=== PATIENT | female | born 1950 | race Caucasian/White ===

== ENCOUNTER 2017-08-12 08:49 | Inpatient (IN) | payer OTHER ==
[2017-08-12] VITALS (10 sets, daily range): BP systolic 117–134; BP diastolic 61–84; PULSE 63–84; RESP 14–18; TEMP 97.7–97.8; O2SAT 96–99
[~2017-08-12] VITALS: Ht 162.6 cm; Wt 58.7 kg
[~2017-08-12 08:49] MED LIST: HYDR-3533 PO; METHO500 PO; SYNT75TA OR
[2017-08-12] MEDS ORDERED: MORPHINE SULFATE 4 MG/ML INJ IV PUSH ONE (09:15)
[2017-08-12] MEDS ORDERED: PANTOPRAZOLE SODIUM 40 MG VIAL IV PUSH ONE (09:15)
[2017-08-12] MEDS ORDERED: ASPIRIN 325 MG TAB PO ONE (09:15)
[2017-08-12] MEDS ORDERED: LEVO.075 PO (09:21)
--- NOTE | 2017-08-12 09:37 | RADRPT ---
EXAM DATE: 08/12/2017 9:27 AM EDT AGE/SEX: 66 years / Female INDICATIONS: Chest & left shoulder pain that woke the patient up this morning. CLINICAL DATA: This is the patient's initial encounter. Patient reports that signs and symptoms have been present for 1 day and indicates a pain score of 8/10. MEDICAL/SURGICAL HISTORY: . Thyroid disease. Smoker. section. COMPARISON: [facility], CHEST SINGLE AP, 06/01/2015. . FINDINGS: A single AP view of the chest demonstrates the lungs to be symmetrically aerated without evidence of mass, infiltrate or effusion. There is hyperaeration of both lung [place]. The cardiomediastinal cont ours are unremarkable. Osseous structures are intact. CONCLUSION: No acute intrathoracic disease. Stable examination. Electronically signed by: Shiv Umana MD 08/12/2017 9:35 AM EDT
[2017-08-12] MEDS ORDERED: MORPHINE SULFATE 2 MG/ML SYRINGE IV PUSH ONE (09:45)
[2017-08-12 09:52] LABS: AUTOMATED NEUTROPHIL # 5.6 TH/MM3 (1.8-7.7); BASOPHIL # 0.1 TH/MM3 (0-0.2); BASOPHIL % 0.8 % (0.0-2.0); EOSINOPHIL # 0.1 TH/MM3 (0-0.4); EOSINOPHIL % 1.6 % (0.0-4.0); HEMOGLOBIN 13.1 GM/DL (11.6-15.3); LYMPH % 25.9 % (9.0-44.0); LYMPHOCYTE # 2.1 TH/MM3 (1.0-4.8); MEAN CELL VOLUME 93.9 FL (80.0-100.0); MEAN CORPUSCULAR HEMOGLOBIN 32.3 PG (27.0-34.0); MEAN CORPUSCULAR HGB CONC 34.5 % (32.0-36.0); MEAN PLATELET VOLUME 7.3 FL (7.0-11.0); MONO % 5.4 % (0.0-8.0); MONOCYTE # 0.4 TH/MM3 (0-0.9); NEUT % 66.3 % (16.0-70.0); PLATELET COUNT 243 TH/MM3 (150-450); RED BLOOD COUNT 4.05 MIL/MM3 (4.00-5.30); RED CELL DISTRIBUTION WIDTH 11.6 % (11.6-17.2); WHITE BLOOD COUNT 8.3 TH/MM3 (4.0-11.0)
[2017-08-12 09:58] LABS: CHLORIDE 107 MEQ/L (98-107); SODIUM (NA) 141 MEQ/L (136-145)
[2017-08-12 10:02] LABS: ALBUMIN 3.9 GM/DL (3.4-5.0); BICARBONATE 26.4 MEQ/L (21.0-32.0); BLOOD UREA NITROGEN 12 MG/DL (7-18); CALCIUM 8.6 MG/DL (8.5-10.1); GLUCOSE,RANDOM 117 MG/DL (74-106)
[2017-08-12 10:05] LABS: ALT (GPT) 17 U/L (10-53); AST (GOT) 14 U/L (15-37); CREATININE 0.72 MG/DL (0.50-1.00); GLOMERULAR FILTRATION RATE 82 ML/MIN (>89)
[2017-08-12 10:07] LABS: TOTAL BILIRUBIN ADULT 0.2 MG/DL (0.2-1.0); TOTAL PROTEIN 7.1 GM/DL (6.4-8.2)
[2017-08-12 10:08] LABS: ALKALINE PHOSPHATASE 66 U/L (45-117)
[2017-08-12 10:10] LABS: TROPONIN I LESS THAN 0.02 NG/ML (0.02-0.05)
--- NOTE | 2017-08-12 10:44 | PD ---
HPI Chief Complaint: Chest Pain Time Seen by Provider: 09:03 Travel History International Travel<30 days: No Contact w/Intl Traveler<30days: No Traveled to known affect area: No History of Present Illness HPI 66-year-old female presented ER for evaluation of chest pain. Chest pain started this morning, sudden onset, dull, pressure-like, mid chest and radiates to the left side, rated 7 out of 10, pain is constant, nothing makes it better or worse, patient did not have this type of pain in the past which prompted her to come to the ER. Pain started around 4:00 this morning and woke the patient up from sleep, patient has no history of hypertension or diabetes, she has no primary care physician. No cough or chills or night sweats, no nausea or vomiting or diarrhea. PFSH Past Medical History Diminished Hearing: No Thyroid Disease: Yes Influenza Vaccination: No ?: Not Past Surgical History Abdominal Surgery: Yes (lap for endometriosis) Section: Yes Social History Alcohol Use: Yes (occ) Tobacco Use: Yes (1/2 ppd) Substance Use: No Allergies-Medications (Allergen,Severity, Reaction): Coded Allergies: penicillin G (Unverified Allergy, Severe, rash, 08/12/17) Uncoded Allergies: codiene (Allergy, Mild, Nausea and vomiting, 08/12/17) Reported Meds & Prescriptions Reported Meds & Active Scripts Active Reported Synthroid (Levothyroxine Sodium) 75 Mcg Tab 75 Mcg PO DAILY Review of Systems Except as stated in HPI: all other systems reviewed are Neg Physical Exam Narrative GENERAL: Alert oriented 3 no acute distress. SKIN: Focused skin assessment warm/dry. HEAD: Atraumatic. Normocephalic. EYES: Pupils equal and round. No scleral icterus. No injection or drainage. ENT: No nasal bleeding or discharge. Mucous membranes pink and moist. NECK: Trachea midline. No JVD. CARDIOVASCULAR: Regular rate and rhythm. No murmur appreciated. RESPIRATORY: No accessory muscle use. Clear to auscultation. Breath sounds equal bilaterally. GASTROINTESTINAL: Abdomen soft, non-tender, nondistended. Hepatic and splenic margins not palpable. MUSCULOSKELETAL: No obvious deformities. No clubbing. No cyanosis. No edema. NEUROLOGICAL: Awake and alert. No obvious cranial nerve deficits. Motor grossly within normal limits. Normal speech. PSYCHIATRIC: Appropriate mood and affect; insight and judgment normal. Data Data Last Documented VS Vital Signs Date Time Temp Pulse Resp B/P (MAP) Pulse Ox O2 Delivery O2 Flow Rate FiO2 08/12/17 10:20 79 129/82 (98) 98 Room Air 08/12/17 10:00 16 08/12/17 09:13 97.7 Orders Orders Electrocardiogram (08/12/17 09:13) B-Type Natriuretic Peptide (08/12/17 09:13) Ckmb (Isoenzyme) Profile (08/12/17 09:13) Complete Blood Count With Diff (08/12/17 09:13) Comprehensive Metabolic Panel (08/12/17 09:13) D-Dimer (08/12/17 09:13) Troponin I (08/12/17 09:13) Lipase (08/12/17 09:13) Chest, Single Ap (08/12/17 09:13) Aspirin (Aspirin) (08/12/17 09:15) Pantoprazole Inj (Protonix Inj) (08/12/17 09:15) Morphine Inj (Morphine Inj) (08/12/17 09:45) Ketorolac Inj (Toradol Inj) (08/12/17 10:45) Electrocardiogram (08/12/17 10:29) Admit Order (Ed Use Only) (08/12/17 11:13) Labs Laboratory Tests Test 08/12/17 09:15 White Blood Count 8.3 TH/MM3 Red Blood Count 4.05 MIL/MM3 Hemoglobin 13.1 GM/DL Hematocrit 38.0 % Mean Corpuscular Volume 93.9 FL Mean Corpuscular Hemoglobin 32.3 PG Mean Corpuscular Hemoglobin Concent 34.5 % Red Cell Distribution Width 11.6 % Platelet Count 243 TH/MM3 Mean Platelet Volume 7.3 FL Neutrophils (%) (Auto) 66.3 % Lymphocytes (%) (Auto) 25.9 % Monocytes (%) (Auto) 5.4 % Eosinophils (%) (Auto) 1.6 % Basophils (%) (Auto) 0.8 % Neutrophils # (Auto) 5.6 TH/MM3 Lymphocytes # (Auto) 2.1 TH/MM3 Monocytes # (Auto) 0.4 TH/MM3 Eosinophils # (Auto) 0.1 TH/MM3 Basophils # (Auto) 0.1 TH/MM3 CBC Comment DIFF FINAL Differential Comment D-Dimer Quantitative (PE/DVT) 0.28 MG/L FEU Blood Urea Nitrogen 12 MG/DL Creatinine 0.72 MG/DL Random Glucose 117 MG/DL Total Protein 7.1 GM/DL Albumin 3.9 GM/DL Calcium Level 8.6 MG/DL Alkaline Phosphatase 66 U/L Aspartate Amino Transf (AST/SGOT) 14 U/L Alanine Aminotransferase (ALT/SGPT) 17 U/L Total Bilirubin 0.2 MG/DL Sodium Level 141 MEQ/L Potassium Level 3.7 MEQ/L Chloride Level 107 MEQ/L Carbon Dioxide Level 26.4 MEQ/L Anion Gap 8 MEQ/L Estimat Glomerular Filtration Rate 82 ML/MIN Total Creatine Kinase 64 U/L Troponin I LESS THAN 0.02 NG/ML B-Type Natriuretic Peptide 27 PG/ML Lipase 198 U/L MDM Medical Decision Making Medical Screen Exam Complete: Yes Emergency Medical Condition: Yes Differential Diagnosis NSTEMI, unstable angina, coronary vasospasm, PE, PTX, aortic dissection, pericarditis, myocarditis, endocarditis, PNA, esophageal disease, aneurysm, musculoskeletal etiologies, anxiety, cocaine/sympathomimetic abuse Narrative Course 66-year-old female here for evaluation of chest pain. Chest pain is typical in presentation, no history of hypertension or diabetes, vitals are stable but patient is in pain even after morphine and Toradol. First EKG is negative for any segment elevation or depression, troponin spiked up from 0.02 to 0.81, repeat EKG shows T wave inversion on lead III that was not there before. Patient vitals are stable but still in pain. Patient was initially admitted for acute coronary syndrome but will be transferred to the main campus for emergent cath. Laboratory Tests Test 08/12/17 09:15 White Blood Count 8.3 TH/MM3 Red Blood Count 4.05 MIL/MM3 Hemoglobin 13.1 GM/DL Hematocrit 38.0 % Mean Corpuscular Volume 93.9 FL Mean Corpuscular Hemoglobin 32.3 PG Mean Corpuscular Hemoglobin Concent 34.5 % Red Cell Distribution Width 11.6 % Platelet Count 243 TH/MM3 Mean Platelet Volume 7.3 FL Neutrophils (%) (Auto) 66.3 % Lymphocytes (%) (Auto) 25.9 % Monocytes (%) (Auto) 5.4 % Eosinophils (%) (Auto) 1.6 % Basophils (%) (Auto) 0.8 % Neutrophils # (Auto) 5.6 TH/MM3 Lymphocytes # (Auto) 2.1 TH/MM3 Monocytes # (Auto) 0.4 TH/MM3 Eosinophils # (Auto) 0.1 TH/MM3 Basophils # (Auto) 0.1 TH/MM3 CBC Comment DIFF FINAL Differential Comment D-Dimer Quantitative (PE/DVT) 0.28 MG/L FEU Blood Urea Nitrogen 12 MG/DL Creatinine 0.72 MG/DL Random Glucose 117 MG/DL Total Protein 7.1 GM/DL Albumin 3.9 GM/DL Calcium Level 8.6 MG/DL Alkaline Phosphatase 66 U/L Aspartate Amino Transf (AST/SGOT) 14 U/L Alanine Aminotransferase (ALT/SGPT) 17 U/L Total Bilirubin 0.2 MG/DL Sodium Level 141 MEQ/L Potassium Level 3.7 MEQ/L Chloride Level 107 MEQ/L Carbon Dioxide Level 26.4 MEQ/L Anion Gap 8 MEQ/L Estimat Glomerular Filtration Rate 82 ML/MIN Total Creatine Kinase 64 U/L Troponin I LESS THAN 0.02 NG/ML B-Type Natriuretic Peptide 27 PG/ML Lipase 198 U/L Diagnosis Primary Impression: Acute coronary syndrome Admitting Information Admitting Physician Requests: Admit Condition: Stable José Miguel Joshi MD Aug 12, 2017 10:44
[2017-08-12] MEDS ORDERED: KETOROLAC TROMETHAMINE 30 MG/ML (IVP) VIAL IV PUSH ONE (10:45)
[2017-08-12] MEDS ORDERED: SODIUM CHLORIDE 0.9% FLUSH 10 ML FLUSH IV FLUSH PRN (11:15)
[2017-08-12] MEDS ORDERED: ACETAMINOPHEN 500 MG CPLT PO PRN (11:15)
[2017-08-12 13:42] LABS: TROPONIN I 0.81 NG/ML (0.02-0.05)
[2017-08-12] MEDS ORDERED: HEPARIN-D5W 25,000 U/250 ML 250 ML IV PRN (14:30)
[2017-08-12] MEDS ORDERED: HEPARIN SODIUM - IV 10,000 UNITS/10 ML VIAL IV ONE (14:30)
[2017-08-12] MEDS: NITROGLYCERIN 2% OINT 1 GM PACKET TOPICAL SCH ×2 (14:42→21:48)
[2017-08-12] MEDS: METOPROLOL TARTRATE 25 MG TAB PO SCH ×2 (14:42→21:48)
[2017-08-12 14:43] LABS: HEMATOCRIT 37.2 % (35.0-46.0); HEMOGLOBIN 12.8 GM/DL (11.6-15.3); MEAN CELL VOLUME 93.6 FL (80.0-100.0); MEAN CORPUSCULAR HEMOGLOBIN 32.2 PG (27.0-34.0); MEAN CORPUSCULAR HGB CONC 34.4 % (32.0-36.0); MEAN PLATELET VOLUME 6.8 FL (7.0-11.0); PLATELET COUNT 243 TH/MM3 (150-450); RED BLOOD COUNT 3.97 MIL/MM3 (4.00-5.30); RED CELL DISTRIBUTION WIDTH 11.9 % (11.6-17.2); WHITE BLOOD COUNT 10.1 TH/MM3 (4.0-11.0)
[2017-08-12 14:56] LABS: PROTHROMBIN TIME - PATIENT 9.8 SEC (9.8-11.6)
--- NOTE | 2017-08-12 15:26 | HHI.HP ---
[facility] No Primary Care Physician Admission Diagnosis ACUTE CORONARY SYNDROME Diagnoses: (1) Acute coronary syndrome Diagnosis: Principal Chief Complaint: Chest pain Travel History International Travel<30 Days: No Contact w/Intl Traveler <30 Da: No Traveled to Known Affected Are: No History of Present Illness 66-year-old female with known history of hypothyroidism who is very active with salsa dancing on a regular basis who presented to the hospital because of chest pain. Patient states that she was in normal state of health last night did also dancing practice and she came home bed. At approximately 3 AM in the morning she woke up with a 5/10 pain in her left shoulder and arm. She thought it was just from her dancing so she was able to go back to sleep and then when she woke up this morning at 6 AM the pain was significantly worse with a pain 9/ 10 on a pain scale initially started developing nausea, vomiting, cold sweats, diaphoresis. Because of those reasons she did come to the emergency department at approximately 850 this morning. When she arrived to the ER she started developing a pressure heaviness in her chest which she described as very heavy with the worsening arm pain. Patient was given morphine with no significant improvement, she was given Toradol with improvement of her pain. She still having some pain at this time in her left shoulder. Patient did have workup done in the emergency department with normal troponin and an initial EKG that was normal, ER physician recommended the patient be admitted for acute coronary syndrome for further evaluation and management. Review of Systems Cardiovascular: COMPLAINS OF: Chest pain Musculoskeletal: COMPLAINS OF: Joint pain, Muscle aches Except as stated in HPI: all other systems reviewed are Neg Past Family Social History Past Medical History Hypothyroidism Past Surgical History Laparoscopic procedure for endometriosis Reported Medications Reported Meds & Active Scripts Active Reported Synthroid (Levothyroxine Sodium) 75 Mcg Tab 75 Mcg PO DAILY Allergies: Coded Allergies: penicillin G (Unverified Allergy, Severe, rash, 08/12/17) Uncoded Allergies: codiene (Allergy, Mild, Nausea and vomiting, 08/12/17) Family History Reviewed and significant for father having early onset heart disease, he had his first heart attack in his early 50s with coronary bypass surgery. Social History Patient smokes half a pack of cigarettes a day since she was 17 years old. Does drink at least one glass of wine daily. Denies any illicit drug Physical Exam Vital Signs Vital Signs Date Time Temp Pulse Resp B/P (MAP) Pulse Ox O2 Delivery O2 Flow Rate FiO2 08/12/17 14:30 72 14 118/71 (87) 98 Room Air 08/12/17 13:27 65 123/75 (91) 96 Room Air 08/12/17 12:30 63 131/76 (94) 98 Room Air 08/12/17 12:00 14 08/12/17 11:30 72 128/72 (90) 98 Room Air 08/12/17 10:20 79 129/82 (98) 98 Room Air 08/12/17 10:00 16 08/12/17 09:16 98 Room Air 08/12/17 09:13 97.7 71 16 117/61 (79) 98 Physical Exam GENERAL: Well-developed, well-nourished, in no acute distress. alert and orientated HEENT: Head is normocephalic without any lesions or masses noted. Facial features are symmetric. Eyes: Pupils equal round reactive to light. Extraocular muscles are intact. Conjunctivae were clear. Oropharyngeal: Pharynx without any erythema edema. Tongue is midline without deviation. Buccal mucosa is moist without any masses or lesions NECK: Supple without any masses. Trachea midline no deviation. No JVD, no bruits are appreciated CARDIAC: Regular rhythm, regular rate. S1/S2 are heard. No murmurs gallops or rubs. LUNGS: Clear to auscultation bilaterally. No wheeze, rhonchi or rales. No use of accessory muscles on inspiration or expiration. ABDOMEN: Soft, nontender. Nondistended. Bowel sounds heard in all 4 quadrants. No organomegaly or masses. Negative rebound, negative guarding EXTREMITIES: No edema, pulses are equal bilaterally. No cyanosis or clubbing NEUROLOGY: Mood and affect appear appropriate. Cranial nerves II through XII grossly intact. Muscle strength 5/5 in upper and lower extremities bilaterally. Deep tendon reflexes are 2+ in upper and lower extremities bilaterally. Laboratory Laboratory Tests Test 08/12/17 09:15 08/12/17 12:30 08/12/17 14:35 White Blood Count 8.3 10.1 Red Blood Count 4.05 3.97 Hemoglobin 13.1 12.8 Hematocrit 38.0 37.2 Mean Corpuscular Volume 93.9 93.6 Mean Corpuscular Hemoglobin 32.3 32.2 Mean Corpuscular Hemoglobin Concent 34.5 34.4 Red Cell Distribution Width 11.6 11.9 Platelet Count 243 243 Mean Platelet Volume 7.3 6.8 Neutrophils (%) (Auto) 66.3 Lymphocytes (%) (Auto) 25.9 Monocytes (%) (Auto) 5.4 Eosinophils (%) (Auto) 1.6 Basophils (%) (Auto) 0.8 Neutrophils # (Auto) 5.6 Lymphocytes # (Auto) 2.1 Monocytes # (Auto) 0.4 Eosinophils # (Auto) 0.1 Basophils # (Auto) 0.1 CBC Comment DIFF FINAL Differential Comment D-Dimer Quantitative (PE/DVT) 0.28 Blood Urea Nitrogen 12 Creatinine 0.72 Random Glucose 117 Total Protein 7.1 Albumin 3.9 Calcium Level 8.6 Alkaline Phosphatase 66 Aspartate Amino Transf (AST/SGOT) 14 Alanine Aminotransferase (ALT/SGPT) 17 Total Bilirubin 0.2 Sodium Level 141 Potassium Level 3.7 Chloride Level 107 Carbon Dioxide Level 26.4 Anion Gap 8 Estimat Glomerular Filtration Rate 82 Total Creatine Kinase 64 157 Troponin I LESS THAN 0.02 0.81 B-Type Natriuretic Peptide 27 Lipase 198 Creatine Kinase MB 17.5 Prothrombin Time 9.8 Prothromb Time International Ratio 1.0 Activated Partial Thromboplast Time 24.4 Result Diagram: 08/12/17 1435 08/12/17 0915 Imaging Last Impressions Chest X-Ray 08/12/17 0913 Signed Impressions: CONCLUSION: No acute intrathoracic disease. Stable examination. Caprini VTE Risk Assessment Caprini VTE Risk Assessment: Mod/High Risk (score >= 2) Caprini Risk Assessment Model Point Value = 1 Point Value = 2 Point Value = 3 Point Value = 5 Age 41-60 Minor surgery BMI > 25 kg/m2 Swollen legs Varicose veins or History of unexplained or recurrent spontaneous Oral contraceptives or hormone replacement Sepsis (< 1 month) Serious lung disease, including pneumonia (< 1 month) Abnormal pulmonary function Acute myocardial infarction Congestive heart failure (< 1 month) History of inflammatory bowel disease Medical patient at bed rest Age 61-74 Arthroscopic surgery Major open surgery (> 45 min) Laparoscopic surgery (> 45 min) Malignancy Confined to bed (> 72 hours) Immobilizing plaster cast Central venous access Age >= 75 History of VTE Family history of VTE Factor V Leiden Prothrombin [id number] Lupus anticoagulant Anticardiolipin antibodies Elevated serum homocysteine Heparin-induced thrombocytopenia Other congenital or acquired thrombophilia Stroke (< 1 month) Elective arthroplasty Hip, pelvis, or leg fracture Acute spinal cord injury (< 1 month) Prophylaxis Regimen Total Risk Factor Score Risk Level Prophylaxis Regimen 0-1 Low Early ambulation 2 Moderate Order ONE of the following: *Sequential Compression Device (SCD) *Heparin 5000 units SQ BID 3-4 Higher Order ONE of the following medications: *Heparin 5000 units SQ TID *Enoxaparin/Lovenox 40 mg SQ daily (WT < 150 kg, CrCl > 30 mL/min) *Enoxaparin/Lovenox 30 mg SQ daily (WT < 150 kg, CrCl > 10-29 mL/min) *Enoxaparin/Lovenox 30 mg SQ BID (WT < 150 kg, CrCl > 30 mL/min) AND/OR *Sequential Compression Device (SCD) 5 or more Highest Order ONE of the following medications: *Heparin 5000 units SQ TID (Preferred with Epidurals) *Enoxaparin/Lovenox 40 mg SQ daily (WT < 150 kg, CrCl > 30 mL/min) *Enoxaparin/Lovenox 30 mg SQ daily (WT < 150 kg, CrCl > 10-29 mL/min) *Enoxaparin/Lovenox 30 mg SQ BID (WT < 150 kg, CrCl > 30 mL/min) AND *Sequential Compression Device (SCD) Assessment and Plan Assessment and Plan Acute coronary syndrome, -Patient still symptomatic with left arm shoulder pain -Patient does have increased risk to include age, postmenopausal without hormones, family history of heart disease, tobacco use -Patient with significant troponin change from 0.02--> 0.81 within 3 hours -Serial EKGs were reviewed and mild ST elevations noted in inferior leads -On-call administrative support associate was notified and spoke with him directly. Recommended emergent transfer to doc unit to undergo cardiac catheterization today. Recommended full anticoagulation. -Patient was given aspirin, will add beta-aleks, Nitropaste, statin -Check lipid panel Hypothyroidism -Check TSH Continue home medications DVT prevention -Heparin Physician Certification 2 Midnight Certification Type: Admission for Inpatient Services Order for Inpatient Services The services are ordered in accordance with Medicare regulations or non- Medicare payer requirements, as applicable. In the case of services not specified as inpatient-only, they are appropriately provided as inpatient services in accordance with the 2-midnight benchmark. Estimated LOS (days): 3 days is the estimated time the patient will need to remain in the hospital, assuming treatment plan goals are met and no additional complications. Post-Hospital Plan: Not yet determined Aly Frederick Aug 12, 2017 15:26
--- NOTE | 2017-08-12 16:45 | MB ---
cc: Laura Mcgraw MD DATE: 08/12/2017 HISTORY OF PRESENT ILLNESS: This 56-year-old female with history of hypothyroidism woke up last night with severe pain in her left shoulder and left arm. She had been Salsa dancing and she thought this was related to her activities. The patient subsequently developed nausea, vomiting, cold sweats, and diaphoresis. She subsequently has heavy chest pressure, and worsening arm pain. She was given Toradol and morphine. Her symptoms are now improved. She is being ruled in for non-ST elevation myocardial infarction with a second troponin of 0.81. PAST MEDICAL HISTORY: Positive for hypothyroidism. No history of hypertension, dyslipidemia, diabetes mellitus, coronary artery disease, or CVA PAST SURGICAL HISTORY: History of , laparoscopic surgery for endometriosis. MEDICATIONS: Synthroid. ALLERGIES: PENICILLIN AND CODEINE. SOCIAL HISTORY: The patient smokes 1/2 pack a day. She drinks wine daily. FAMILY HISTORY: Positive for heart disease in both parents. REVIEW OF SYSTEMS: Otherwise negative. PHYSICAL EXAMINATION: VITAL SIGNS: Blood pressure 118/71, pulse 72 and regular. HEENT: Negative. NECK: 2+ carotid pulse. No bruits. LUNGS: Clear. HEART: Regular with no murmur or gallop. ABDOMEN: Soft. No bruits. EXTREMITIES: Without edema. 2+ distal pulses. NEUROLOGIC: Grossly nonfocal. DIAGNOSTIC STUDIES: EKG was reviewed and showed sinus bradycardia at 57 beats per minute and nonspecific T-wave changes. LABORATORY DATA: Hemoglobin 12.8, potassium 3.7, creatinine 0.7. Troponin 0.02 and 0.81. CK 64 and 157. BNP 27. DIAGNOSES: 1. Non-ST elevation myocardial infarction. 2. Hypothyroidism. 3. Smoking. DISPOSITION: Ms. Delatorre will undergo cardiac catheterization and coronary intervention if necessary. The patient understands the risks and benefits, and wishes to proceed. She was strongly encouraged to quit smoking. Laura Mcgraw MD OQ/ARIK , 04:22 PM , 04:43 PM [facility]
[2017-08-12] MEDS ORDERED: HEPARIN-NS/PF INJ 1,000 ML ONE (17:00)
[2017-08-12] MEDS ORDERED: IOHEXOL 350 MG/ML 100 ML BTL (for Cath Lab) OTHER ONE (17:17)
--- NOTE | 2017-08-12 17:20 | EKG ---
Date Performed: 08/12/2017 Time Performed: 10:29:19 PTAGE: 66 years EKG: Sinus rhythm NONSPECIFIC ST & T-WAVE ABNORMALITY BORDERLINE ECG PREVIOUS TRACING : 05/16/2011 16.28 Since the previous tracing, no significant change noted DOCTOR: Sung Haskins Interpretating Date/Time 08/12/2017 17:19:27
--- NOTE | 2017-08-12 17:20 | EKG ---
Date Performed: 08/12/2017 Time Performed: 08:54:29 PTAGE: 66 years EKG: SINUS BRADYCARDIA NONSPECIFIC ST & T-WAVE ABNORMALITY BORDERLINE ECG INTERPRETATION BASED O N A DEFAULT AGE OF 42 YEARS PREVIOUS TRACING 05/16/11 Since the previous tracing, no significant change noted DOCTOR: Sung Haskins Interpretating Date/Time 08/12/2017 17:19:18
[2017-08-12] MEDS ORDERED: MIDAZOLAM HCL 5 MG/5 ML VIAL ONE (17:41)
[2017-08-12] MEDS ORDERED: HEPARIN-NS/PF INJ 500 ML ONE (18:31)
[2017-08-12] MEDS ORDERED: CLOPIDOGREL 300 MG TAB ONE (19:00)
[2017-08-12] MEDS ORDERED: SODIUM CHLOR 0.9% 1000 ML INJ 1,000 ML IV SCH (19:10)
--- NOTE | 2017-08-12 19:12 | CATHPROC ---
[facility] HIS Report Study Information Study Number Admission Scheduled Start Study Start [id number] Aug 12 2017 3:07PM 08/12/2017 Aug 12 2017 5:23PM [place] [facility] Cardiac Catheterization Admit Source Facility Department Emergency department [facility] - Mediation Commissioner Physician and Clinical Staff Initial Laura Romna Case Management Associate Evonne Valencia,BREA Recorder Tsering Griffin,RT(R) (BS) Scrub Caroline PratherRT(R) Procedures Performed Procedure Location (Site) Vessel Name Angiogram LV LV Ventricle Coronary Angiograms LCA Left Coronary Coronary Angiograms RCA Right Coronary Drug Eluting Inflatio RCA Dist Right Coronary Drug Eluting Inflatio RCA Mid Right Coronary L Heart Cath PTCA RCA Dist Right Coronary PTCA ADD ON'S Wire insertion Fem Art (right) Femoral Art Equipment Time Rapid Transit Operator Description Size Mfg Part Number Used/Scraped TRANSDUCER, TRUWAVE [id number] 18:00 [employer] THRASHER * Used W/STOCKCOCK *[id number] *[id number] *[id number] *[id number] *[id number] 18:49 DAIG/ST. JARVIS MEDICAL ANGIOSEAL, FR6 VIP FR 6 Used *[id number] 18:00 5by BLANKET,WARM AIR CCL * Used *[id number] 18:00 5by PACK, CCL CUSTOM * Used *[id number] 18:00 [employer] PACER PEN, SKIN DUAL W/ RULER * Used *[id number] 18:30 MEDTRONIC BALLOON, 2.0 X 12MM EUPHORA 12MM Used *[id number] 17:53 MEDTRONIC JL 4.0 DXTERITY CATHETER FR 5 Used *[id number] 18:40 MEDTRONIC STENT, 2.25 38MM ANGELA 2.25 38MM [id number] 18:42 MEDTRONIC STENT, 2.5 12MM ANGELA 2.5 12MM Used *[id number] 18:17 Celframe 30 JESUS ALBERTO INDEFLATOR Used *[id number] 18:17 [employer]elf[employer] SHEATH, FR6.5 PRELUDE 11CM FR 6.5 [id number] Used *[id number] 18:00 [employer]elf[employer] WIRE, 3MMJ .035 180CM 180CM Used *[id number] PROBE COVER, STERILE [id number] 18:00 [employer] MEDICAL * Used ULTRASOUND W/ GEL *[id number] 18:00 NAMIC MANIFOLD, 4 PORT * Used *[id number] 18:00 NAMIC TUBING, HIGH PRESSURE 48" 48" Used *[id number] 18:00 NYCOMED OMNIPAQUE, 350 MG, 150ML 150ML [id number] Used 18:21 NYCOMED OMNIPAQUE, 350 MG, 150ML 150ML [id number] Used 18:21 NYCOMED OMNIPAQUE, 350 MG, 150ML 150ML [id number] Used [id number] 18:00 TERUMO MEDICAL SHEATH, FR5 TERUMO (10CM) FR 5 Used *[id number] WIRE, RUNTHROUGH NS FLOPPY [id number] 18:15 TERUMO MEDICAL 180CM Used .014 180CM *[id number] Equipment Model, Serial, Lot Number and Expiration Data Description Model Number Serial Number Lot Number Expiration Date ANGIOSEAL, FR6 VIP [id number] 03-26-2018 JL 4.0 DXTERITY CATHETER [id number] 12-11-2019 STENT, 2.25 38MM ANGELA [id number] 10-29-2018 STENT, 2.5 12MM ANGELA [id number] 04-09-2019 History: Current Medications Medication Dosage/Unit Route Frequency Last Date/Time Taken ASA Beta Lalita Statins (any) NTG Patch History: Allergies Allergy Reaction penicillin G rash codiene Nausea and vomiting History: Risk Factors Family History of Hypertension Dyslipidemia Previous NM Previous Heart Failure Premature CAD No No Yes No No Prior Valve Prior PCI Prior CABG Surgery No No No Cerebrovascular Peripheral Artery Chronic Lung On Dialysis Diabetes Disease Disease Disease No No No No No History: Symptoms/Diagnosis Selection Items Chest pain History: Stress Tests Stress or Imaging Studies Performed No History: Other Current Smoker Method Packs a Day Years Used Pack Years Yes Cigarettes 1 49 49 Labs Hgb (g/dl) Hct (%) WBC (l/cumm) Platelets (thousands) 11.60-17.00 35.00-51.00 4.00-11.00 150.00-450.00 12.8 37.2 10.1 243 Glucose (mg/dl) BUN (mg/dl) Creatinine (mg/dl) BUN:Creatinine (1:x) 74.00-106.00 7.00-18.00 0.50-1.30 10.00-20.00 117 12 0.7 17.1 Na (meq/l) K (meq/l) 136.00-145.00 3.50-5.10 141 3.7 INR (PTT:PT) 0.90-1.10 1 Troponin I (ng/ml) CPK (u/l) CPK-MB (ng/ML) 0.02-0.05 26.00-308.00 0.50-3.60 0.81 157 17.5 Medication Medication Total Dose (Bolus/Oral) Medication Total Dosage/Unit 1% XYLOCAINE 20 mL FENTANYL 100 mcg HEPARIN 3500 units NTG (IC) 100 mcg OXYGEN 2 l/min PLAVIX 600 mg VERSED 4 mg Medications (Bolus/Oral) Medication Time Given Dosage/Unit Administered By Reason OXYGEN 08/12/2017 5:36:35 PM 2 l/min Evonne Valencia 2 l/min OXYGEN given in lab by Evonne Valencia RN via Nasal. VERSED 08/12/2017 5:45:52 PM 1 mg Evonne Valencia 1 mg VERSED given in lab by Evonne Valencia RN in Left Antecubital via Peripheral IV. FENTANYL 08/12/2017 5:46:03 PM 25 mcg Evonne Valencia 25 mcg FENTANYL given in lab by Evonne Valencia RN in Left Antecubital via Peripheral IV. 1% XYLOCAINE 08/12/2017 5:49:06 PM 20 mL Caroline Prather 20 mL 1% XYLOCAINE given in lab by Caroline Prather, RT(R) in Right Groin via Subcutaneous. VERSED 08/12/2017 6:17:46 PM 1 mg Evonne Valencia 1 mg VERSED given in lab by Evonne Valencia RN in Left Antecubital via Peripheral IV. FENTANYL 08/12/2017 6:18:48 PM 25 mcg Evonne Valencia 25 mcg FENTANYL given in lab by Evonne Valencia RN in Left Antecubital via Peripheral IV. HEPARIN 08/12/2017 6:18:57 PM 3500 units Evonne Valencia 3500 units HEPARIN given in lab by Evonne Valencia RN in Left Antecubital via Peripheral IV. VERSED 08/12/2017 6:34:31 PM 1 mg Evonne Valencia 1 mg VERSED given in lab by Evonne Valencia RN in Left Antecubital via Peripheral IV. VERSED 08/12/2017 6:43:17 PM 1 mg Evonne Valencia 1 mg VERSED given in lab by Evonne Valencia RN in Left Antecubital via Peripheral IV. FENTANYL 08/12/2017 6:43:23 PM 25 mcg Evonne Valencia 25 mcg FENTANYL given in lab by Evonne Valencia RN in Left Antecubital via Peripheral IV. NTG (IC) 08/12/2017 6:45:25 PM 100 mcg Caroline Prather 100 mcg NTG (IC) given in lab by Caroline Prather RT(R) via Intra-coronary. FENTANYL 08/12/2017 6:52:24 PM 25 mcg Evonne Valencia 25 mcg FENTANYL given in lab by Evonne Valencia RN in Left Antecubital via Peripheral IV. PLAVIX 08/12/2017 7:00:32 PM 600 mg Evonne Valencia 600 mg PLAVIX given in lab by Evonne Valencia RN via Oral. Medication (Drip) Medication Time Given Dosage/Unit Concentration/Unit Diluent (ml) Solution HEPARIN DRIP STOPPED 08/12/2017 5:20:31 PM 0 units/hr 0 0 units/hr HEPARIN DRIP STOPPED given in lab by Evonne Valencia RN. Pump/Drip Flow = 0 ml/hr using [ Solution Name]. Initial Case Assessment Cardiovascular HR Rhythm NIBP Chest Pain 73 reg 124/72 2 Edema Present Skin color Skin None Normal Warm Dry Circulatory - Right Pulses Dorsalis Pedis Femoral 2 2 Scale (0,1,2,3,4,d) Circulatory - Left Pulses Dorsalis Pedis Femoral 2 2 Scale (0,1,2,3,4,d) Circulatory - Lower Extremities Color Lower Right Color Lower Left Normal Normal Neurological State Oriented to time-place- Alert Moves all extremities person Respiration - General Respiration Rate SpO2 (%) (B/min) 8 98 Chronological Log Time Study Chronological Log 17:14:13 Patient arrived via Bed. 17:14:25 Patient Name, D.O.B, / Armband Verified By R.N. 17:14:29 Consent signed by the physician and the patient and verified by the Mediation Commissioner staff. 0 units/hr HEPARIN DRIP STOPPED given in lab by Evonne Valencia, BREA. Pump/Drip Flow = 0 ml/hr u sing [Solution 17:20:31 Name]. 17:23:33 Pre-op and post- op instructions given; patient acknowledges understanding of instructions. 17:23:33 Verbal Stimulation=2 Physical Stimulation=2 Airway=2 Respiration=2 TOTAL=8. (0=absent, 1=li mited, 2=present) 17:23:35 Presedation assessment performed by Mediation Commissioner RN. 17:23:42 Patient has been NPO for More than 6Hrs. 17:23:44 Skin Breakdown none per pt 17:23:46 Patient Warmer Placed on the Table. 17:23:47 Tariq Prominences Protected 17:23:53 History and physical on the chart or being dictated. Assessment: Initial Case, HR=73 BPM, Rhythm=reg, STRF=545/72 mmhg, Chest Pain=2, Edema=None, Co dina=Normal, Skin = Warm, Dry Right Pulses: Ajith Ped=2, Femoral=2 Left Pulses: Ajith Ped=2, Femoral=2 17:23:55 Lower Right Extremities: Color=Normal Lower Left Extremities: Color=Normal Neurological: State=Alert, Ox3, PLUNKETT Respiration: Resp=8 B/min, SpO2=98 % Vitals capture started with the following parameters, Patient=Adult, Interval=5 min, Initial Pr vfvpfx=612 mmHg, 17:24:11 Deflation Rate=5 mmHg, Cuff placed on Left Arm 17:24:47 ZL=115 bpm, JVHJ=095/72 mmhg, SpO2=99.0 %, Resp=0 B/min, Pain=2, Rad=10, Amaro=2 17:29:42 HR=71 bpm, YYLV=998/75 mmhg, Resp=12 B/min, Pain=2, Rad=10, Amaro=2 17:30:16 Vitals capture stopped. 17:32:34 BL starting new IV. 17:35:13 A # 20 IV was inserted in the Antecubital (left). Grade = 0 17:36:35 2 l/min OXYGEN given in lab by Evonne Valencia, RN via Nasal. 17:41:28 Bilateral groins prepped with 2% chlorhexidine, and draped after a 3 minute waiting time. 17:45:18 Pressure channel 1 zeroed. 17:45:49 paged 17:45:52 1 mg VERSED given in lab by Evonne Valencia RN in Left Antecubital via Peripheral IV. 17:46:03 25 mcg FENTANYL given in lab by Evonne Valencia RN in Left Antecubital via Peripheral IV. 17:46:51 Reference ECG taken 17:49:06 20 mL 1% XYLOCAINE given in lab by Caroline Prather, RT(R) in Right Groin via Subcutaneous. 17:55:57 MD arrived. Time Out. Correct patient, correct procedure, correct physician, labs, allergies, and equipment verified with pipelines laborer 17:58:17 team present. Fire risk assesment completed (see hard stop sheet for coding). Time Out Conc urred by MD and individual staff in procedure. 17:58:50 Case Start 17:59:33 Access site was Right Femoral Artery using ultrasound 17:59:59 A SHEATH, FR5 TERUMO (10CM) FR 5 was advanced into the Fem Art (right) using the Percutaneo us technique. A PIGTAIL ANG. INFINITI CATHETER FR 5 was advanced over a wire. OMNIPAQUE, 350 MG, 150ML 150ML was used 18:00:24 for injections. Recorded Pressure: LV, HR=75, Condition=Condition 1 18:02:06 (Left Ventricle) LV 135/12/19 18:02:55 The LV was injected at 10 cc/sec for a total of 30. OMNIPAQUE, 350 MG, 150ML 150ML used. 18:03:47 Activated Clotting Time Drawn Recorded Pressure: LV, Ao, HR=78, Condition=Condition 1 18:03:52 (Left Ventricle) LV 130/9/20, (Aorta) Ao 134/68/97 18:04:20 Catheter was removed A JL 4.0 DXTERITY CATHETER FR 5 was advanced over a wire. OMNIPAQUE, 350 MG, 150ML 150ML was us ed for 18:04:21 injections. 18:05:30 The LCA was injected and visualized at various angles. OMNIPAQUE, 350 MG, 150ML 150ML used . 18:06:51 Catheter was removed A AR MOD INFINITI CATHETER FR 5 was advanced over a wire. OMNIPAQUE, 350 MG, 150ML 150ML was us ed for 18:06:54 injections. 18:07:16 ACT (Normal Range 90-180) = 138 18:08:26 The RCA was injected and visualized at various angles. OMNIPAQUE, 350 MG, 150ML 150ML used . 18:09:25 Catheter was removed 18:16:25 OMNIPAQUE, 350 MG, 150ML 150ML and 30 JESUS ALBERTO INDEFLATOR added. A SHEATH, FR6.5 PRELUDE 11CM FR 6.5 was exchanged in the Fem Art (right). This was necessary in order to 18:17:10 accomodate a larger catheter. A AR 1 GUIDE CATHETER FR 6 was advanced over a wire. OMNIPAQUE, 350 MG, 150ML 150ML was used for 18:17:26 injections. 18:17:46 1 mg VERSED given in lab by Evonne Valencia RN in Left Antecubital via Peripheral IV. 18:18:48 25 mcg FENTANYL given in lab by Evonne Valencia RN in Left Antecubital via Peripheral IV. 18:18:57 3500 units HEPARIN given in lab by Evonne Valencia RN in Left Antecubital via Peripheral I V. 18:21:52 Catheter was removed A [address] [place] [address] GUIDE CATHETER FR 6 was advanced over a wire. OMNIPAQUE, 350 MG, 150ML 150ML was used for 18:22:11 injections. 18:24:50 Activated Clotting Time Drawn 18:25:36 A WIRE, RUNTHROUGH NS FLOPPY .014 180CM 180CM was inserted via Fem Art (right). A BALLOON, 2.0 X 12MM EUPHORA 12MM was inserted over WIRE, RUNTHROUGH NS FLOPPY .014 180CM 180C M via 18:29:00 the Fem Art (right). 18:29:12 ACT (Normal Range 90-180) = 325 A BALLOON, 2.0 X 12MM EUPHORA 12MM over a WIRE, RUNTHROUGH NS FLOPPY .014 180CM 180CM in the RC A Dist 18:32:38 was inflated using a 30 JESUS ALBERTO INDEFLATOR at 14 jesus alberto for 10 sec. A BALLOON, 2.0 X 12MM EUPHORA 12MM over a WIRE, RUNTHROUGH NS FLOPPY .014 180CM 180CM in the RC A Dist 18:32:58 was inflated using a 30 JESUS ALBERTO INDEFLATOR at 14 jesus alberto for 10 sec. A BALLOON, 2.0 X 12MM EUPHORA 12MM over a WIRE, RUNTHROUGH NS FLOPPY .014 180CM 180CM in the RC A Dist 18:33:12 was inflated using a 30 JESUS ALBERTO INDEFLATOR at 14 jesus alberto for 8 sec. A BALLOON, 2.0 X 12MM EUPHORA 12MM over a WIRE, RUNTHROUGH NS FLOPPY .014 180CM 180CM in the RC A Dist 18:33:26 was inflated using a 30 JESUS ALBERTO INDEFLATOR at 14 jesus alberto for 8 sec. A BALLOON, 2.0 X 12MM EUPHORA 12MM over a WIRE, RUNTHROUGH NS FLOPPY .014 180CM 180CM in the RC A Dist 18:33:39 was inflated using a 30 JESUS ALBERTO INDEFLATOR at 14 jesus alberto for 8 sec. A BALLOON, 2.0 X 12MM EUPHORA 12MM over a WIRE, RUNTHROUGH NS FLOPPY .014 180CM 180CM in the RC A Dist 18:33:43 was inflated using a 30 JESUS ALBERTO INDEFLATOR at 14 jesus alberto for 7 sec. A BALLOON, 2.0 X 12MM EUPHORA 12MM over a WIRE, RUNTHROUGH NS FLOPPY .014 180CM 180CM in the RC A Dist 18:34:30 was inflated using a 30 JESUS ALBERTO INDEFLATOR at 14 jesus alberto for 8 sec. 18:34:31 1 mg VERSED given in lab by Evonne Valencia RN in Left Antecubital via Peripheral IV. 18:34:48 Balloon Removed A STENT, 2.25 38MM ANGELA 2.25 38MM was advanced through a 3D SH GUIDE CATHETER FR 6 over a WIR E, 18:39:12 RUNTHROUGH NS FLOPPY .014 180CM 180CM. A STENT, 2.25 38MM ANGELA 2.25 38MM was deployed using a 30 JESUS ALBERTO INDEFLATOR at 12 atmospheres for 27 seconds 18:40:37 in the RCA Dist. 18:41:36 Delivery device removed A STENT, 2.5 12MM ANGELA 2.5 12MM was advanced through a 3DRC SH GUIDE CATHETER FR 6 over a WIRE, 18:43:10 RUNTHROUGH NS FLOPPY .014 180CM 180CM. 18:43:17 1 mg VERSED given in lab by Evonne Valencia RN in Left Antecubital via Peripheral IV. 18:43:23 25 mcg FENTANYL given in lab by Evonne Valencia RN in Left Antecubital via Peripheral IV. A STENT, 2.5 12MM ANGELA 2.5 12MM was deployed using a 30 JESUS ALBERTO INDEFLATOR at 12 atmospheres for 34 seconds in 18:43:52 the RCA Mid. 18:44:44 Delivery device removed 18:45:25 100 mcg NTG (IC) given in lab by Caroline Prather RT(R) via Intra-coronary. 18:46:57 Wire removed 18:49:28 An injection in the Fem Art (right) was made through the SHEATH, FR6.5 PRELUDE 11CM FR 6.5. 18:49:50 ANGIOSEAL, FR6 VIP FR 6 placement in the Fem Art (right) 18:52:24 25 mcg FENTANYL given in lab by Evonne Valencia RN in Left Antecubital via Peripheral IV. 18:52:57 Case End (Physician broke scrub) 18:54:51 Catheter(s) removed without difficulty 18:54:58 No case complications noted. 18:55:13 Bedside Report will be given. 18:55:13 Implantable Device card placed in patient's chart. 18:55:16 A Left Heart Cath was performed. 18:56:08 Sterile dressing applied to site 19:00:32 600 mg PLAVIX given in lab by Evonne Valencia RN via Oral. 19:04:53 [facility] Study - Contrast Media Used In Study Contrast Total Opened (mL) Total Used (mL) Total Wasted (mL) Omnipaque 300 300 0 End Study - Maximum Contrast Load Max Contrast Load (mL) 371.4 End Study - Radiation Exposure Fluoro Time (minutes) 13.0 End Study - Sheaths Sheaths Pulled By Sheath Hold Time (min) Laura Mcgraw End Study - Patient Disposition Complications Transferred To Interventional Outcome No Telemetry Bed successful
[2017-08-12] MEDS ORDERED: MISC INFORMATION XX ONE (19:15)
--- NOTE | 2017-08-12 19:32 | MR ---
cc: Laura Mcgraw MD, Otakar MD DATE: 08/12/2017 INDICATIONS: Non-ST elevation myocardial infarction, class IV angina. PROCEDURE PERFORMED: 1. Retrograde heart catheterization with left ventriculography and selective coronary angiography. 2. Angioplasty and stenting of the mid and distal right coronary artery. 3. Moderate sedation. ACCESS SITE: Right femoral artery. vein, 5 Nigerian pigtail catheter, 5 Nigerian JL4 and AR modified coronary catheters, 3DRC guide with side holes, run through wire, 2.0 x 12 mm balloon for predilatation, 2.25 x 38 mm osmin drug-eluting stent at 12 atmospheres to the distal RCA and 2.5 x 12 mm Osmin drug-eluting stent at 12 atmospheres to the mid RCA. MEDICATIONS: Versed IV, fentanyl IV, heparin IV, nitroglycerin IC, Plavix 600 mg p.o. CONTRAST: Omnipaque 300 mL COMPLICATIONS: None. ESTIMATED BLOOD LOSS: Less than 10 mL METHOD OF HEMOSTASIS: Angio-Seal closure: RESULTS HEMODYNAMICS: Heart rate 70 beats per minute, left ventricular end-diastolic pressure 9 mmHg, left ventricle 136/9, aorta 130/68/97. LEFT VENTRICULOGRAPHY: Ejection fraction 40%, wall motion inferobasal hypokinesis, no mitral regurgitation. CORONARY ANGIOGRAPHY: Left main coronary artery patent. Left anterior descending artery has 60% stenosis in the mid portion distally to a large second diagonal branch. D1 is small with 70% ostial stenosis. D2 is a large vessel with 50% ostial stenosis. Left circumflex artery is patent. OM1 patent, OM2 is patent. OM3 is a large vessel with 50% proximal stenosis. The right coronary artery has 70% stenosis in the mid portion and is totally occluded in the distal portion. Ramus intermedius has a 30% ostial stenosis. Stenosis in the mid right coronary artery is 70%, lesion length 7 mm. DALE flow 3, post-DALE flow 3. Post stenosis 0. Stenosis in the distal right coronary artery is 100%. Lesion length 27 mm. DALE flow 0, post DALE flow 3, post-stenosis 0. Post-intervention angiography revealed excellent patency of the stented segments and no evidence of dissection, thrombosis or distal embolization. DIAGNOSES: 1. Severe coronary artery disease with total occlusion of the distal right coronary artery. 2. Moderate left ventricular dysfunction, consistent with ischemic cardiomyopathy. 3. Successful angioplasty and stenting of the mid and distal right coronary artery. DISPOSITION: Ms Delatorre will be monitored on telemetry after procedure. We will continue long-term therapy with Plavix and baby aspirin. I recommend also to start therapy with a beta aleks, CHRISTINE inhibitor and a high-dose statin. She was strongly encouraged to quit smoking. She will followup with her family physician after discharge/ MD CRISTINE Jackson/ , 07:07 PM , 07:30 PM
[2017-08-12] MEDS ORDERED: HEPARIN SODIUM - IV 10,000 UNITS/10 ML VIAL IV PRN ×2 (20:30)
[2017-08-12] MEDS ORDERED: ATORVASTATIN 10 MG TAB PO SCH (21:00)
[2017-08-12] MEDS: ATORVASTATIN 80 MG TAB PO SCH (21:48)
[2017-08-12] MEDS: SODIUM CHLORIDE 0.9% FLUSH 10 ML FLUSH IV FLUSH SCH (21:48)
[2017-08-12 23:23] LABS: TROPONIN I GREATER THAN 40.00 NG/ML (0.02-0.05)
[2017-08-13] VITALS (28 sets, daily range): BP systolic 82–131; BP diastolic 54–74; PULSE 58–84; RESP 16–18; TEMP 97.7–98.5; O2SAT 98–99
[2017-08-13] MEDS: NITROGLYCERIN 2% OINT 1 GM PACKET TOPICAL SCH ×4 (02:30→19:39)
[2017-08-13 06:33] LABS: AUTOMATED NEUTROPHIL # 5.7 TH/MM3 (1.8-7.7); BASOPHIL % 0.5 % (0.0-2.0); EOSINOPHIL # 0.1 TH/MM3 (0-0.4); EOSINOPHIL % 1.3 % (0.0-4.0); HEMATOCRIT 33.5 % (35.0-46.0); HEMOGLOBIN 11.4 GM/DL (11.6-15.3); LYMPH % 26.7 % (9.0-44.0); LYMPHOCYTE # 2.3 TH/MM3 (1.0-4.8); MEAN CELL VOLUME 93.2 FL (80.0-100.0); MEAN CORPUSCULAR HEMOGLOBIN 31.8 PG (27.0-34.0); MEAN CORPUSCULAR HGB CONC 34.1 % (32.0-36.0); MEAN PLATELET VOLUME 7.3 FL (7.0-11.0); MONO % 6.5 % (0.0-8.0); MONOCYTE # 0.6 TH/MM3 (0-0.9); PLATELET COUNT 196 TH/MM3 (150-450); RED CELL DISTRIBUTION WIDTH 12.5 % (11.6-17.2); WHITE BLOOD COUNT 8.7 TH/MM3 (4.0-11.0)
[2017-08-13 06:54] LABS: BICARBONATE 21.2 MEQ/L (21.0-32.0); CALCIUM 8.5 MG/DL (8.5-10.1); CREATININE 0.71 MG/DL (0.50-1.00)
[2017-08-13 07:09] LABS: CHOLESTEROL/ HDL RATIO 2.05 RATIO; HDL CHOLESTEROL 58.9 MG/DL (40.0-60.0)
--- NOTE | 2017-08-13 07:27 | EKG ---
Date Performed: 08/12/2017 Time Performed: 20:09:22 PTAGE: 66 years EKG: Sinus rhythm Inferior T wave changes may be due to myocardial ischemia Abnormal ECG PREVIOUS TRACING : 08/12/2017 13.57 DOCTOR: Mohsen Oden Interpretating Date/Time 08/13/2017 07:25:54
[2017-08-13] MEDS ORDERED: LISINOPRIL 5 MG TAB PO SCH (09:00)
[2017-08-13] MEDS: LEVOTHYROXINE SODIUM 75 MCG TAB PO SCH (09:00)
[2017-08-13] MEDS: SODIUM CHLORIDE 0.9% FLUSH 10 ML FLUSH IV FLUSH SCH ×2 (09:00→21:00)
[2017-08-13] MEDS: ASPIRIN 81 MG CHEW TAB PO SCH (09:23)
[2017-08-13] MEDS: METOPROLOL TARTRATE 25 MG TAB PO SCH ×2 (09:24→21:00)
[2017-08-13] MEDS: CLOPIDOGREL 75 MG TAB PO SCH (09:24)
[2017-08-13] MEDS ORDERED: PILL SPLITTER OTHER PRN (10:00)
--- NOTE | 2017-08-13 12:10 | HHI.PR ---
Subjective Remarks Patient reports she is feeling okay. She denies any chest pain or shortness of breath. She had about 30 beats run of V. tach overnight. Objective Vitals Vital Signs Date Time Temp Pulse Resp B/P (MAP) Pulse Ox O2 Delivery O2 Flow Rate FiO2 08/13/17 11:30 98.2 68 18 92/55 (67) 98 08/13/17 07:15 98.0 72 18 102/59 (73) 99 08/13/17 06:00 66 08/13/17 05:00 58 08/13/17 04:00 97.7 65 18 94/67 (76) 99 08/13/17 04:00 65 08/13/17 03:00 66 08/13/17 02:00 65 08/13/17 01:00 74 08/13/17 00:00 66 08/13/17 00:00 98.0 68 18 116/74 (88) 98 08/12/17 23:00 73 08/12/17 22:00 84 08/12/17 21:00 97.8 84 18 134/84 (101) 97 08/12/17 15:19 08/12/17 14:30 72 14 118/71 (87) 98 Room Air 08/12/17 14:15 99 21 08/12/17 13:27 65 123/75 (91) 96 Room Air 08/12/17 12:30 63 131/76 (94) 98 Room Air I/O 08/12/17 08/12/17 08/12/17 08/13/17 08/13/17 08/13/17 07:00 15:00 23:00 07:00 15:00 23:00 Intake Total 2500 ml 920 ml Output Total 350 ml Balance 2500 ml 570 ml Intake Oral 420 ml IV Total 2500 ml 500 ml Output Urine Total 350 ml # Voids 4 # Bowel Movements 1 Result Diagram: 08/13/1733 08/13/17532 Imaging Last Impressions Chest X-Ray 08/12/17 09 Signed Impressions: CONCLUSION: No acute intrathoracic disease. Stable examination. Objective Remarks GENERAL: This is a well-nourished, well-developed patient, in no apparent distress. CARDIOVASCULAR: Normal rate and regular rhythm without murmurs, gallops, or rubs. RESPIRATORY: Good respiratory efforts. Breath sounds equal and clear to auscultation bilaterally. GASTROINTESTINAL: Abdomen soft, non-tender, non-distended. Normal active bowel sounds MUSCULOSKELETAL: Extremities without cyanosis, or edema. NEURO: Alert & Oriented x4 to person, place, time, situation. Moves all ext x4 PSYCH: Appropriate mood and affect. A/P Problem List: (1) Acute coronary syndrome ICD Code: I24.9 - Acute ischemic heart disease, unspecified Status: Acute (2) NSTEMI (non-ST elevated myocardial infarction) ICD Code: I21.4 - Non-ST elevation (NSTEMI) myocardial infarction (3) CAD (coronary artery disease) ICD Code: I25.10 - Atherosclerotic heart disease of [place] coronary artery without angina pectoris (4) Stented coronary artery ICD Code: Z95.5 - Presence of coronary angioplasty implant and graft Assessment and Plan 66-year-old female with: Acute coronary syndrome: Cardiology following. Patient underwent heart catheterization which revealed- severe coronary artery disease with total occlusion of the distal right coronary artery, status post stent placement. Moderate left ventricular dysfunction. -Continue to monitor today. - Continue aspirin, beta-aleks, statin, lisinopril. Hypothyroidism Continue home medications Discharge Planning Continue to monitor overnight. Probable discharge tomorrow morning if remains stable. Wilmar Nance MD Aug 13, 2017 12:10
--- NOTE | 2017-08-13 12:58 | PD.CARD.PN ---
Subjective Subjective Remarks No CP or SOB, tele with NS VT Objective Medications Current Medications Medications (Trade) Dose Ordered Sig/Judy Route Start Time Stop Time Status Last Admin (NS Flush) 2 ml UNSCH PRN IV FLUSH 08/12/17 11:15 (NS Flush) 2 ml BID IV FLUSH 08/12/17 21:00 08/13/17 09:00 (Tylenol) 500 mg Q4H PRN PO 08/12/17 11:15 (Nitroglycerin 2% Oint) 0.5 inch Q6H TOPICAL 08/12/17 14:30 08/13/17 08:30 (Lopressor) 12.5 mg Q12HR PO 08/12/17 14:30 08/13/17 09:24 (Lipitor) 80 mg HS PO 08/12/17 21:00 08/12/17 21:48 (Aspirin Chew) 81 mg DAILY PO 08/13/17 09:00 08/13/17 09:23 (Plavix) 75 mg DAILY PO 08/13/17 09:00 08/13/17 09:24 (Synthroid) 75 mcg DAILY@0600 PO 08/13/17 09:00 08/13/17 09:00 (Prinivil) 2.5 mg DAILY PO 08/14/17 09:00 (Pill Splitter) 1 ea UNSCH PRN OTHER 08/13/17 10:00 Vital Signs / I&O Vital Signs Date Time Temp Pulse Resp B/P (MAP) Pulse Ox O2 Delivery O2 Flow Rate FiO2 08/13/17 11:30 98.2 68 18 92/55 (67) 98 08/13/17 07:15 98.0 72 18 102/59 (73) 99 08/13/17 06:00 66 08/13/17 05:00 58 08/13/17 04:00 97.7 65 18 94/67 (76) 99 08/13/17 04:00 65 08/13/17 03:00 66 08/13/17 02:00 65 08/13/17 01:00 74 08/13/17 00:00 66 08/13/17 00:00 98.0 68 18 116/74 (88) 98 08/12/17 23:00 73 08/12/17 22:00 84 08/12/17 21:00 97.8 84 18 134/84 (101) 97 08/12/17 15:19 08/12/17 14:30 72 14 118/71 (87) 98 Room Air 08/12/17 14:15 99 21 08/12/17 13:27 65 123/75 (91) 96 Room Air I/O 08/12/17 08/12/17 08/12/17 08/13/17 08/13/17 08/13/17 07:00 15:00 23:00 07:00 15:00 23:00 Intake Total 2500 ml 920 ml Output Total 350 ml Balance 2500 ml 570 ml Intake Oral 420 ml IV Total 2500 ml 500 ml Output Urine Total 350 ml # Voids 4 # Bowel Movements 1 Physical Exam GENERAL: In NAD. SKIN: Warm and dry. HEAD: Normocephalic. EYES: No scleral icterus. No injection or drainage. NECK: Supple, trachea midline. No JVD or lymphadenopathy. CARDIOVASCULAR: Regular rate and rhythm without murmurs, gallops, or rubs. RESPIRATORY: Breath sounds equal bilaterally. No accessory muscle use. GASTROINTESTINAL: Abdomen soft, non-tender, nondistended. MUSCULOSKELETAL: No cyanosis, or edema. Groin stable. Laboratory Laboratory Tests Test 08/12/17 14:35 08/12/17 21:55 08/13/17 05:33 White Blood Count 10.1 TH/MM3 8.7 TH/MM3 Red Blood Count 3.97 MIL/MM3 3.60 MIL/MM3 Hemoglobin 12.8 GM/DL 11.4 GM/DL Hematocrit 37.2 % 33.5 % Mean Corpuscular Volume 93.6 FL 93.2 FL Mean Corpuscular Hemoglobin 32.2 PG 31.8 PG Mean Corpuscular Hemoglobin Concent 34.4 % 34.1 % Red Cell Distribution Width 11.9 % 12.5 % Platelet Count 243 TH/MM3 196 TH/MM3 Mean Platelet Volume 6.8 FL 7.3 FL Prothrombin Time 9.8 SEC Prothromb Time International Ratio 1.0 RATIO Activated Partial Thromboplast Time 24.4 SEC 32.2 SEC Total Creatine Kinase 1326 U/L 1079 U/L Creatine Kinase MB 208.5 NG/ML 124.6 NG/ML Creatine Kinase MB % 15.7 % 11.5 % Troponin I GREATER THAN 40.00 NG/ML Neutrophils (%) (Auto) 65.0 % Lymphocytes (%) (Auto) 26.7 % Monocytes (%) (Auto) 6.5 % Eosinophils (%) (Auto) 1.3 % Basophils (%) (Auto) 0.5 % Neutrophils # (Auto) 5.7 TH/MM3 Lymphocytes # (Auto) 2.3 TH/MM3 Monocytes # (Auto) 0.6 TH/MM3 Eosinophils # (Auto) 0.1 TH/MM3 Basophils # (Auto) 0.0 TH/MM3 CBC Comment DIFF FINAL Differential Comment Blood Urea Nitrogen 10 MG/DL Creatinine 0.71 MG/DL Random Glucose 102 MG/DL Calcium Level 8.5 MG/DL Sodium Level 143 MEQ/L Potassium Level 3.8 MEQ/L Chloride Level 112 MEQ/L Carbon Dioxide Level 21.2 MEQ/L Anion Gap 10 MEQ/L Estimat Glomerular Filtration Rate 83 ML/MIN Triglycerides Level 112 MG/DL Cholesterol Level 121 MG/DL LDL Cholesterol 40 MG/DL HDL Cholesterol 58.9 MG/DL Cholesterol/HDL Ratio 2.05 RATIO Assessment and Plan Problem List: (1) Acute coronary syndrome ICD Codes: I24.9 - Acute ischemic heart disease, unspecified Status: Acute (2) NSTEMI (non-ST elevated myocardial infarction) ICD Codes: I21.4 - Non-ST elevation (NSTEMI) myocardial infarction (3) CAD (coronary artery disease) ICD Codes: I25.10 - Atherosclerotic heart disease of [place] coronary artery without angina pectoris (4) Ischemic cardiomyopathy ICD Codes: I25.5 - Ischemic cardiomyopathy (5) Stented coronary artery ICD Codes: Z95.5 - Presence of coronary angioplasty implant and graft Assessment and Plan No angina or CHF. Tele with NSVT. Continue beta aleks and titrate as tolerated. Continue lisinopril, statin, Plavix and baby ASA. Continue monitoring. Increase activity. Laura Mcgraw MD Aug 13, 2017 12:58
--- NOTE | 2017-08-13 13:50 | EKG ---
Date Performed: 08/13/2017 Time Performed: 06:08:22 PTAGE: 66 years EKG: Sinus bradycardia Inferior and anterior T wave changes are nonspecific Borderline ECG PREVIOUS TRACING : 08/12/2017 20.09 DOCTOR: Mohsen Oden Interpretating Date/Time 08/13/2017 13:48:52
--- NOTE | 2017-08-13 13:58 | EKG ---
Date Performed: 08/12/2017 Time Performed: 13:57:14 PTAGE: 66 years EKG: SINUS BRADYCARDIA NONSPECIFIC T-WAVE ABNORMALITY BORDERLINE ECG PREVIOUS TRACING : 08/12/2017 10.29 DOCTOR: Mohsen Oden Interpretating Date/Time 08/13/2017 13:55:15
[2017-08-13] MEDS ORDERED: PROCHLORPERAZINE INJ 10 MG/2 ML VIAL IV PUSH PRN (20:00)
[2017-08-13] MEDS: ATORVASTATIN 80 MG TAB PO SCH (21:00)
[2017-08-14] VITALS (12 sets, daily range): BP systolic 108–126; BP diastolic 57–71; PULSE 68–89; RESP 16; TEMP 99.5; O2SAT 96–98
[2017-08-14] MEDS: NITROGLYCERIN 2% OINT 1 GM PACKET TOPICAL SCH ×2 (02:30→08:30)
[2017-08-14] MEDS: LEVOTHYROXINE SODIUM 75 MCG TAB PO SCH (06:37)
[2017-08-14] MEDS ORDERED: LISINOPRIL 5 MG TAB PO SCH (09:00)
[2017-08-14] MEDS: SODIUM CHLORIDE 0.9% FLUSH 10 ML FLUSH IV FLUSH SCH (09:00)
[2017-08-14] MEDS ORDERED: METO25TA3 PO (09:51)
[2017-08-14] MEDS ORDERED: PLAV75TA29 PO (09:51)
[2017-08-14] MEDS ORDERED: ATOR80TA45 PO (09:51)
[2017-08-14] MEDS ORDERED: LISI-519 PO (09:51)
[2017-08-14] MEDS ORDERED: ASPI81 PO (09:51)
--- NOTE | 2017-08-14 09:52 | HHI.DCPOC ---
Discharge Care Plan Diagnosis: (1) NSTEMI (non-ST elevated myocardial infarction) (2) Stented coronary artery (3) CAD (coronary artery disease) Goals to Promote Your Health * To prevent worsening of your condition and complications * To maintain your health at the optimal level Directions to Meet Your Goals Take your medications as prescribed Follow your dietary instruction Follow activity as directed Keep your appointments as scheduled Take your immunizations and boosters as scheduled If your symptoms worsen call your PCP, if no PCP go to Urgent Care Center or Emergency Room Smoking is Dangerous to Your Health. Avoid second hand smoke Call the 24-hour hour crisis hotline for domestic abuse at Wilmar Nance MD Aug 14, 2017 09:52
--- NOTE | 2017-08-14 09:53 | HHI.DS ---
Discharge Summary Admission Date Aug 12, 2017 at 15:07 Discharge Date: Aug 15, 2017 Admitting Diagnosis ACUTE CORONARY SYNDROME (1) Acute coronary syndrome ICD Code: I24.9 - Acute ischemic heart disease, unspecified Status: Acute (2) NSTEMI (non-ST elevated myocardial infarction) ICD Code: I21.4 - Non-ST elevation (NSTEMI) myocardial infarction (3) CAD (coronary artery disease) ICD Code: I25.10 - Atherosclerotic heart disease of [place] coronary artery without angina pectoris (4) Stented coronary artery ICD Code: Z95.5 - Presence of coronary angioplasty implant and graft Procedures Heart cath Brief History - From Admission HPI from the admitting physician 66-year-old female with known history of hypothyroidism who is very active with salsa dancing on a regular basis who presented to the hospital because of chest pain. Patient states that she was in normal state of health last night did also dancing practice and she came home bed. At approximately 3 AM in the morning she woke up with a 5/10 pain in her left shoulder and arm. She thought it was just from her dancing so she was able to go back to sleep and then when she woke up this morning at 6 AM the pain was significantly worse with a pain 9/ 10 on a pain scale initially started developing nausea, vomiting, cold sweats, diaphoresis. Because of those reasons she did come to the emergency department at approximately 850 this morning. When she arrived to the ER she started developing a pressure heaviness in her chest which she described as very heavy with the worsening arm pain. Patient was given morphine with no significant improvement, she was given Toradol with improvement of her pain. She still having some pain at this time in her left shoulder. Patient did have workup done in the emergency department with normal troponin and an initial EKG that was normal, ER physician recommended the patient be admitted for acute coronary syndrome for further evaluation and management. CBC/BMP: 08/13/17 0533 08/13/17 0533 Significant Findings Laboratory Tests Test 08/12/17 09:15 08/12/17 12:30 08/12/17 14:35 08/12/17 21:55 Random Glucose 117 MG/DL (74-106) Aspartate Amino Transf (AST/SGOT) 14 U/L (15-37) Estimat Glomerular Filtration Rate 82 ML/MIN (>89) Troponin I LESS THAN 0.02 NG/ML 0.81 NG/ML (0.02-0.05) GREATER THAN 40.00 NG/ML Creatine Kinase MB 17.5 NG/ML (0.5-3.6) 208.5 NG/ML (0.5-3.6) Thyroid Stimulating Hormone 3rd Gen 0.350 uIU/ML (0.358-3.740) Red Blood Count 3.97 MIL/MM3 (4.00-5.30) Mean Platelet Volume 6.8 FL (7.0-11.0) Activated Partial Thromboplast Time 32.2 SEC (24.3-30.1) Total Creatine Kinase 1326 U/L (26-192) Creatine Kinase MB % 15.7 % (0.0-4.0) Test 08/13/17 05:33 Red Blood Count 3.60 MIL/MM3 (4.00-5.30) Hemoglobin 11.4 GM/DL (11.6-15.3) Hematocrit 33.5 % (35.0-46.0) Chloride Level 112 MEQ/L (98-107) Estimat Glomerular Filtration Rate 83 ML/MIN (>89) Total Creatine Kinase 1079 U/L (26-192) Creatine Kinase MB 124.6 NG/ML (0.5-3.6) Creatine Kinase MB % 11.5 % (0.0-4.0) Imaging Last Impressions Chest X-Ray 08/12/17 0987 Signed Impressions: CONCLUSION: No acute intrathoracic disease. Stable examination. PE at Discharge GENERAL: This is a well-nourished, well-developed patient, in no apparent distress. CARDIOVASCULAR: Normal rate and regular rhythm without murmurs, gallops, or rubs. RESPIRATORY: Good respiratory efforts. Breath sounds equal and clear to auscultation bilaterally. GASTROINTESTINAL: Abdomen soft, non-tender, non-distended. Normal active bowel sounds MUSCULOSKELETAL: Extremities without cyanosis, or edema. NEURO: Alert & Oriented x4 to person, place, time, situation. Moves all ext x4 PSYCH: Appropriate mood and affect. Pt update on day of discharge Patient reports she is feeling great. No chest pain or shortness of breath. Hospital Course 66-year-old patient underwent heart catheterization which revealed-severe coronary artery disease with total occlusion of the distal right coronary artery , status post stent placement. Moderate left ventricular dysfunction. Patient had some non sustained VT. She was monitored and that resolved. Patient discharged on aspirin, plavix, beta-aleks, statin, lisinopril. Hypothyroidism Continue home medications Pt Condition on Discharge: Good Discharge Disposition: Discharge Home Discharge Time: <= 30 minutes Discharge Instructions DIET: Follow Instructions for: Heart Healthy Diet Activities you can perform: Regular-No Restrictions Follow up Referrals: Cardiology with Laura Mcgraw MD New Medications: Aspirin (Tgt Aspirin) 81 Mg Chw 81 MG PO DAILY, #30 EA Atorvastatin (Atorvastatin) 80 Mg Tab 80 MG PO HS, #30 TAB Clopidogrel (Plavix) 75 Mg Tab 75 MG PO DAILY, #30 TAB Lisinopril (Lisinopril) 5 Mg Tab 2.5 MG PO DAILY, #30 TAB Metoprolol Tartrate (Metoprolol Tartrate) 25 Mg Tab 12.5 MG PO Q12HR, #60 TAB Continued Medications: Levothyroxine (Synthroid) 75 Mcg Tab 75 MCG PO DAILY for Thyroid, #30 TAB 0 Refills Wilmar Nance MD Aug 14, 2017 09:53
[2017-08-14] MEDS: METOPROLOL TARTRATE 25 MG TAB PO SCH (10:23)
[2017-08-14] MEDS: CLOPIDOGREL 75 MG TAB PO SCH (10:23)
[2017-08-14] MEDS: ASPIRIN 81 MG CHEW TAB PO SCH (10:23)
--- NOTE | 2017-08-14 11:15 | PD.CARD.PN ---
Subjective Subjective Remarks No CP or SOB, V ectopy markedly improved Objective Medications Current Medications Medications (Trade) Dose Ordered Sig/Judy Route Start Time Stop Time Status Last Admin (NS Flush) 2 ml UNSCH PRN IV FLUSH 08/12/17 11:15 (NS Flush) 2 ml BID IV FLUSH 08/12/17 21:00 08/13/17 21:00 (Tylenol) 500 mg Q4H PRN PO 08/12/17 11:15 (Nitroglycerin 2% Oint) 0.5 inch Q6H TOPICAL 08/12/17 14:30 08/13/17 14:30 (Lopressor) 12.5 mg Q12HR PO 08/12/17 14:30 08/14/17 10:23 (Lipitor) 80 mg HS PO 08/12/17 21:00 08/13/17 21:00 (Aspirin Chew) 81 mg DAILY PO 08/13/17 09:00 08/14/17 10:23 (Plavix) 75 mg DAILY PO 08/13/17 09:00 08/14/17 10:23 (Synthroid) 75 mcg DAILY@0600 PO 08/13/17 09:00 08/14/17 06:37 (Prinivil) 2.5 mg DAILY PO 08/14/17 09:00 08/14/17 10:23 (Pill Splitter) 1 ea UNSCH PRN OTHER 08/13/17 10:00 (Compazine Inj) 5 mg Q6H PRN IV PUSH 08/13/17 20:00 Vital Signs / I&O Vital Signs Date Time Temp Pulse Resp B/P (MAP) Pulse Ox O2 Delivery O2 Flow Rate FiO2 08/14/17 07:00 99.5 70 16 126/71 (89) 96 08/14/17 06:00 72 08/14/17 06:00 68 16 98 08/14/17 05:00 68 08/14/17 04:00 76 08/14/17 02:40 72 16 108/57 (74) 98 08/14/17 02:40 74 08/14/17 02:00 74 08/14/17 01:00 84 08/14/17 00:00 76 08/13/17 23:00 78 08/13/17 22:00 78 08/13/17 21:00 68 08/13/17 20:43 99 08/13/17 20:00 80 08/13/17 20:00 82 08/13/17 19:33 84 16 131/64 (86) 99 08/13/17 19:00 82 08/13/17 18:00 81 08/13/17 17:00 80 08/13/17 16:00 70 08/13/17 15:00 77 08/13/17 15:00 98.5 75 18 82/54 (63) 98 08/13/17 14:00 72 08/13/17 13:00 65 08/13/17 12:00 74 08/13/17 11:30 98.2 68 18 92/55 (67) 98 I/O 08/13/17 08/13/17 08/13/17 08/14/17 08/14/17 08/14/17 07:00 15:00 23:00 07:00 15:00 23:00 Intake Total 920 ml 720 ml 340 ml Output Total 350 ml 600 ml Balance 570 ml 120 ml 340 ml Intake Oral 420 ml 720 ml 340 ml IV Total 500 ml Output Urine Total 350 ml 600 ml # Voids 4 # Bowel Movements 1 Physical Exam GENERAL: In NAD. SKIN: Warm and dry. HEAD: Normocephalic. EYES: No scleral icterus. No injection or drainage. NECK: Supple, trachea midline. No JVD or lymphadenopathy. CARDIOVASCULAR: Regular rate and rhythm without murmurs, gallops, or rubs. RESPIRATORY: Breath sounds equal bilaterally. No accessory muscle use. GASTROINTESTINAL: Abdomen soft, non-tender, nondistended. MUSCULOSKELETAL: No cyanosis, or edema. Groin stable. Assessment and Plan Problem List: (1) Acute coronary syndrome ICD Codes: I24.9 - Acute ischemic heart disease, unspecified Status: Acute (2) NSTEMI (non-ST elevated myocardial infarction) ICD Codes: I21.4 - Non-ST elevation (NSTEMI) myocardial infarction (3) CAD (coronary artery disease) ICD Codes: I25.10 - Atherosclerotic heart disease of [place] coronary artery without angina pectoris (4) Ischemic cardiomyopathy ICD Codes: I25.5 - Ischemic cardiomyopathy (5) Stented coronary artery ICD Codes: Z95.5 - Presence of coronary angioplasty implant and graft Assessment and Plan No angina or CHF. Tele with NSVT in the first 24 hrs after [place], now markedly improved. Continue metoprolol and titrate as tolerated. Continue lisinopril, statin, Plavix for 1 year and baby ASA indefinitely. Increase activity. OK to discharge home. Laura Mcgraw MD Aug 14, 2017 11:15
[2017-08-14] MEDS ORDERED: METOPROLOL TARTRATE 25 MG TAB PO SCH (21:00)
== END 2017-08-14 12:51 | disposition home or self-care (01) | DRG 247 ==
LOC: PHED 08:49 → PHEDA 11:14 → OBSVTOIN 15:07 → HCIS 19:14
PROVIDERS: ADMIT Family Medicine; ATTEND Family Medicine
PROC: 4A023N7 Measurement of Cardiac Sampling and Pressure, Left Heart, Percutaneous Approach (ICD-10-PCS; 2017-08-12)
PROC: B2111ZZ Fluoroscopy of Multiple Coronary Arteries using Low Osmolar Contrast (ICD-10-PCS; 2017-08-12)
PROC: B2151ZZ Fluoroscopy of Left Heart using Low Osmolar Contrast (ICD-10-PCS; 2017-08-12)
PROC: 027035Z Dilation of Coronary Artery, One Artery with Two Drug-eluting Intraluminal Devices, Percutaneous Approach (ICD-10-PCS; principal; 2017-08-12 14:45)
DX: I21.4 Non-ST elevation (NSTEMI) myocardial infarction (principal); I47.2 Ventricular tachycardia; I25.10 Atherosclerotic heart disease of native coronary artery without angina pectoris; E03.9 Hypothyroidism, unspecified; E07.9 Disorder of thyroid, unspecified; I25.5 Ischemic cardiomyopathy; F17.210 Nicotine dependence, cigarettes, uncomplicated; Z82.49 Family history of ischemic heart disease and other diseases of the circulatory system
CPT/HCPCS: 71045; 80048; 80053; 80061; 82550; 82552; 83690; 83880; 84443; 84484; 85002; 85025; 85027; 85379; 85610; 85730; 92928; 93005; 93458; 96374; 96375; 99152; 99153; C1725; C1760; C1769; C1874; C1887; C1893; C9113; G0269; J1644; J1885; J2250; J2270; J3010; Q9967